=== PATIENT | female | born 1990 | race Caucasian/White ===

== ENCOUNTER 2022-02-07 20:03 | Emergency (ER) | payer OTHER ==
[~2022-02-07] VITALS: Ht 170.2 cm; Wt 95.2 kg
[2022-02-07] MEDS ORDERED: IBUPROFEN 600 MG TABLET. PO ONE (20:55)
[2022-02-07] MEDS: IBUPROFEN 600 MG TABLET. PO ONE (20:57)
[2022-02-07 21:05] VITALS: BP 138/88
--- NOTE | 2022-02-07 21:06 | PHYS DOC ---
General Adult EDM: Chief Complaint: Neck Pain HPI: HPI: Patient is a 31-year-old female who presents with headache. Patient states that at 10 AM this morning she was getting her child out of the car when she hit her head on the roof of the car. Denies loss of consciousness. Patient reports headache and mild neck pain. Patient has full range of motion of neck. Patient is rating headache 2/10. Denies take anything at home for pain. Denies nausea/vomiting. Denies altered mental status, no balance issues, no visual changes. "I had anxiety so I wanted to come in". Patient is alert and oriented x4 and hemodynamically stable. Denies medical history. (TOMAS SAUCEDO APRN) Review of Systems: Review of Systems: ROS At least 10 ROS systems have been reviewed and are negative except as documented in the HPI. General: Negative except as outlined in HPI above. Skin: Negative except as outlined in HPI above. HEENT: Negative except as outlined in HPI above. Neck: Negative except as outlined in HPI above. Respiratory: Negative except as outlined in HPI above.. Cardiovascular: Negative except as outlined in HPI above. Abdomen: Negative except as outlined in HPI above. : Negative except as outlined in HPI above. Back/MSK: Negative except as outlined in HPI above. Neuro: Negative except as outlined in HPI above. Psych: Negative except as outlined in HPI above. (TOMAS SAUCEDO APRN) Current Medications: Current Meds: Current Medications Medications (Trade) Dose Ordered Sig/Roge Start Time Stop Time Status Last Admin Dose Admin Ibuprofen (Motrin) 600 mg 1X ONCE 02/07/22 21:00 02/07/22 21:01 UNV 02/07/22 20:57 600 MG (TOMAS SAUCEDO [employer]) Physical Exam: PE: Constitutional: Well developed, well nourished, no acute distress, non-toxic appearance. [] HENT: Normocephalic, atraumatic, bilateral external ears normal, oropharynx moist, no oral exudates, nose normal. [] Eyes: PERRLA, EOMI, conjunctiva normal, no discharge. [] Neck: Normal range of motion, mild, midline tenderness Cardiovascular:Heart rate regular rhythm, no murmur [] Lungs & Thorax: Bilateral breath sounds clear to auscultation [] Abdomen: Bowel sounds normal, soft, no tenderness Skin: Warm, dry, no erythema, no rash. [] Back: No tenderness, no CVA tenderness. [] Extremities: No tenderness, no cyanosis, no clubbing, ROM intact, no edema. [] Neurologic: Alert and oriented X 3, normal motor function, normal sensory function, no focal deficits noted Psychologic: Affect normal, anxious mood (TOMAS SAUCEDO APRN) Current Patient Data: Vital Signs: Vital Signs Date Time Temp Pulse Resp B/P (MAP) Pulse Ox O2 Delivery O2 Flow Rate FiO2 02/07/22 20:12 99.0 95 16 143/92 (109) 98 Room Air (TOMAS SAUCEDO APRN) EKG: EKG: [] (TOMAS SAUCEDO APRN) Radiology/Procedures: Radiology/Procedures: [] (TOMAS SAUCEDO APRN) Heart Score: C/O Chest Pain: No Risk Factors: Risk Factors: DM, Current or recent (<one month) smoker, HTN, HLP, family history of CAD, obesity. Risk Scores: Score 0 - 3: 2.5% MACE over next 6 weeks - Discharge Home Score 4 - 6: 20.3% MACE over next 6 weeks - Admit for Clinical Observation Score 7 - 10: 72.7% MACE over next 6 weeks - Early Invasive Strategies (TOMAS SAUCEDO APRN) Course & Med Decision Making: Course & Med Decision Making Pertinent Labs and Imaging studies reviewed. (See chart for details) [] 31-year-old female presents with headache and mild neck pain after hitting her head at the roof of her car. Patient reports incident happened at 10 AM this morning. Patient denied loss of consciousness. Rating pain 2/10. Patient denies take anything prior to arrival. Patient is alert and oriented x4, hemodynamically stable. Full range of motion of neck. No signs of trauma. D iscussed risk versus benefit of CT. Patient agrees that she does not think she needs a CT. Patient given ibuprofen for discomfort. Discussed taking Tylenol and ibuprofen at home. Discussed return precautions at length. Patient verbalized understanding of discharge instructions and return precautions. patient appreciative and okay with discharge plan. (TOMAS SAUCEDO APRN) Dragon Disclaimer: Dragon Disclaimer: This electronic medical record was generated, in whole or in part, using a voice recognition dictation system. (TOMAS SAUCEDO APRN) Departure Departure: Impression: Primary Impression: Headache Qualified Codes: R51.9 - Headache, unspecified Disposition: HOME / SELF CARE / HOMELESS Condition: STABLE Referrals: PCP,UNKNOWN (PCP) Patient Instructions: Concussion and Brain Injury, [id number] Additional Instructions: You are seen in the emergency room after hitting your head. You were given ibuprofen while in the ER. I am sending you home with information regarding concussion and signs and symptoms to look for. Please return to emergency room if you have worsening symptoms or concerns such as altered mental status, visual changes, balance issues, uncontrolled vomiting or pain. Otherwise follow-up with your PCP. Continue taking ibuprofen and Tylenol at home for pain. EMERGENCY DEPARTMENT GENERAL DISCHARGE INSTRUCTIONS Thank you for coming to [facility] (ED) today and trusting us with you care. We trust that you had a positivie experience in our Emergency Department. If you wish to speak to the department management, you may call the director at [phone]. YOUR FOLLOW UP INSTRUCTIONS ARE FOLLOWS: 1. Do you have a private Doctor? If you do not have a private doctor, please ask for a resource list of physicians or clinics that may be able to assist you with follow up care. 2. The Emergency Physician has interpreted your x-rays. The X-Ray specialist will also review them. If there is a change in the findings, you will be notified in 48 hours when at all possible. 3. A lab test or culture has been done, your results will be reviewed and you will be notified if you need a change in treatment. ADDITIONAL INSTRUCTIONS AND INFORMATION: 1. Your care today has been supervised by a physician who is specially trained in emergency care. Many problems require more than one evaluation for a complete diagnosis and treatment. We recommend that you schedule your follow up appointment as recommended to ensure complete treatment of you illness or injury. If you are unable to obtain follow up care and continue to have a problem, or if your condition worsens, we recommend that you return to the ED. 2. We are not able to safely determine your condition over the phone nor are we able to give sound medical advice over the phone. For these safety reasons, if you call for medical advice we will ask you to come to the ED for further evaluation. 3. If you have any questions regarding these discharge instructions please call the ED at [phone]. SAFETY INFORMATION: In the interest of safety, wellness, and injury prevention; we encourage you to wear your sealbelt, if you smoke; quite smoking, and we encourage family to use a protective helmet for bicycling and other sporting events that present an increased risk for head injury. IF YOUR SYMPTOMS WORSEN OR NEW SYMPTOMS DEVELOP, OR YOU HAVE CONCERNS ABOUT YOUR CONDITION; OR IF YOUR CONDITION WORSENS WHILE YOU ARE WAITING FOR YOUR FOLLOW UP APPOINTMENT; EITHER CONTACT YOUR PRIMARY CARE DOCTOR, THE PHYSICIAN WHOSE NAME AND NUMBER YOU WERE GIVEN, OR RETURN TO THE ED IMMEDIATELY. Attending Signature Attending Signature I have participated in the care of this patient and I have reviewed and agree with all pertinent clinical information above including history, exam, and recommendations. (TG BYRD MD) Dragon Disclaimer This chart was dictated in whole or in part using Voice Recognition software in a busy, high-work load, and often noisy Emergency Department environment. It may contain unintended and wholly unrecognized errors or omissions. (TG BYRD MD) TOMAS SAUCEDO [employer] Feb 07, 2022 21:06 TG BYRD MD Feb 08, 2022 07:22
== END 2022-02-07 21:10 | disposition home or self-care (01) ==
LOC: ER 20:03
DX: R51.9 Headache, unspecified (principal); M54.2 Cervicalgia
CPT/HCPCS: 99282